=== PATIENT | female | born 1990 | race Caucasian/White ===

== ENCOUNTER 2019-02-05 17:20 | Emergency (ER) | payer OTHER ==
[~2019-02-05] VITALS: Ht 175.3 cm; Wt 74.8 kg
== END 2019-02-05 19:38 | disposition home or self-care (01) ==
LOC: ER 17:20
DX: M75.51 Bursitis of right shoulder (principal)

== ENCOUNTER 2019-04-15 13:04 | Emergency (ER) | payer OTHER ==
[~2019-04-15] VITALS: Ht 175.3 cm; Wt 77.1 kg
== END 2019-04-15 17:15 | disposition home or self-care (01) ==
LOC: ER 13:04
DX: M25.531 Pain in right wrist (principal)